=== PATIENT | male | born 1965 | race African-American/Black ===

== ENCOUNTER 2018-10-04 13:15 | Inpatient (IN) | payer OTHER ==
--- NOTE | 2018-10-04 18:28 | HP ---
CIWA Score Nausea/Vomitin-Mild Nausea/No Vomiting Muscle Tremors: 2 Anxiety: 3 Agitation: 3 Paroxysmal Sweats: 3 Orientation: 0-Oriented Tacttile Disturbances: 0-None Auditory Disturbances: 0-None Visual Disturbances: 0-None Headache: 2-Mild CIWA-Ar Total Score: 14 - Admission Criteria [facility]ASAS Guidelines: Admission for Medically Managed Detox: Requires at least one of the followin. CIWA greater than 12 2. Seizures within the past 24 hours 3. Delirium tremens within the past 24 hours 4. Hallucinations within the past 24 hours 5. Acute intervention needed for co occurring medical disorder 6. Acute intervention needed for co occurring psychiatric disorder 7. Severe withdrawal that cannot be handled at a lower level of care (continued vomiting, continued diarrhea, abnormal vital signs) requiring intravenous medication and/or fluids 8. Patient presents the following: CIWA greater than 12 Admission Criteria Met: Admission criteria met Admission ROS [facility] Chief Complaint: Experiencing alcohol withdrawal Allergies/Adverse Reactions: Allergies Allergy/AdvReac Type Severity Reaction Status Date / Time No Known Allergies Allergy Verified 10/04/18 14:17 History of Present Illness: Here for alcohol detox. Alcohol use since age 16. States current use x 10 years. Cocaine use since age 26. States current use x 10 years. Stopped smoking about 5 years ago. Longest length of sobriety 1 year over 10 years. Hx: Blackouts - last 1 month ago. Denies seizures or overdoses. PMHx: HTN (States not taking meds), (L) AKA, GERD, Low Back pain, Shoulder pain , MHHx: Insomnia. Denies depression. Denies thoughts of harming self or others. Patient Name: Dom Marrero Date: 1965 Address: [address] [place] [address] Sex: Male Rx Written Rx Dispensed Drug Quantity Days Supply Prescriber Name 10/22/2017 10/26/2017 chlordiazepoxide 10 mg capsule 4 2 Lucero Linn MD 10/07/2017 10/15/2017 chlordiazepoxide 10 mg capsule 4 2 Lucero Linn MD Search Terms: Dom Marrero, 1965 Search Date: 10/04/2018 06:24:41 PM States Searched: [place], [place], [place], [place], [place], [place], [place] The Drug Utilization Report below displays the controlled substance prescriptions, if any, that were dispensed in the indicated state(s). The information displayed on this report is compiled from requests submitted to other states' PMPs, and accurately reflects the information as returned by them. Blank saldana indicate data not provided by other state. This report was requested by: Zainab Carrillo | Reference #: [id number] Exam Limitations: No Limitations - Ebola screening Have you traveled outside of the country in the last 21 days: No (N) Have you had contact with anyone from an Ebola affected area: No Have you been sick,other than usual withdrawal symptoms: No (Denies recent exposure to measles) Do you have a fever: No - Review of Systems Constitutional: Diaphoresis, Changes in sleep (Difficulty falling asleep - no sleep meds prescribed) EENT: reports: Blurred Vision Respiratory: reports: No Symptoms reported Cardiac: reports: No Symptoms Reported GI: reports: Nausea, Indigestion (I have GERD/acid reflux) : reports: No Symptoms Reported Musculoskeletal: reports: Back Pain (Chronic sharp back pain - since 1998. pain now @ "7". Increases w/ twisting; Improves w/ laying straight), Joint Pain ( Both shoulder pain - Increases w/ moving arms. Improves w/ not moving.), Other ( AKA - in 1998. States has sharp pain intermittently.) Integumentary: reports: No Symptoms Reported Neuro: reports: Headache (Mild frontal and temportal headache), Tremors Endocrine: reports: Increased Thirst Hematology: reports: No Symptoms Reported Psychiatric: reports: Judgement Intact, Agitated, Anxious Patient History - PPD History Previous Implant?: Yes Documented Results: Negative w/o proof Implanted On Prior [facility] Admission?: No PPD to be Administered?: Yes - Smoking Cessation Smoking history: Former smoker Have you smoked in the past 12 months: No Hx Chewing Tobacco Use: No Initiated information on smoking cessation: No - Substance & Tx. History Hx Alcohol Use: Yes Hx Substance Use: Yes Substance Use Type: Alcohol, Cocaine Hx Substance Use Treatment: Yes (detox) - Substances abused Alcohol Substance route: Oral Frequency: Daily Amount used: 3-40oz Beer, Vodka-1PInt Age of first use: 16 Date of last use: 10/03/18 Cocaine Substance route: Inhalation Frequency: Daily Amount used: $30-$100 Age of first use: 26 Date of last use: 10/03/18 Admission Physical Exam [facility] - Vital Signs Vital Signs: Vital Signs - 24 hr 10/04/18 14:17 Temperature 97.9 F Pulse Rate 58 L Respiratory 18 Rate Blood Pressure 135/71 - Physical General Appearance: Yes: Nourished, Mild Distress, Tremorous, Sweating, Anxious HEENTM: Yes: EOMI, Hearing grossly Normal, Normocephalic, Normal Voice, KUSHAL, Pharynx Normal Respiratory: Yes: Lungs Clear, Normal Breath Sounds, No Respiratory Distress Neck: Yes: No masses,lesions,Nodules, Supple Breast: Yes: Breast Exam Deferred Cardiology: Yes: S1, S2, Bradycardia, Irregular Abdominal: Yes: Non Tender, Soft, Increased Bowel Sounds Genitourinary: Yes: Within Normal Limits Back: Yes: Normal Inspection Musculoskeletal: Yes: full range of Motion, Other ((L) AKA. 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 intact, Fully Oriented, Alert, Motor Strength 5/5 Integumentary: Yes: Normal Color, Warm Lymphatic: Yes: Within Normal Limits - Diagnostic (1) Alcohol dependence with uncomplicated withdrawal Current Visit: Yes Status: Acute (2) Cocaine dependence, uncomplicated Current Visit: Yes Status: Chronic (3) Above knee amputation of left lower extremity Current Visit: Yes Status: Chronic (4) Essential (primary) hypertension Current Visit: Yes Status: Chronic (5) Bradycardia Current Visit: Yes Status: Acute (6) Low back pain Current Visit: Yes Status: Chronic Qualifiers: Chronicity: chronic Back pain laterality: unspecified Sciatica presence: without sciatica Qualified Code(s): M54.5 - Low back pain; G89.29 - Other chronic pain (7) Shoulder pain Current Visit: Yes Status: Acute Qualifiers: Chronicity: chronic Laterality: bilateral Qualified Code(s): M25.511 - Pain in right shoulder; M25.512 - Pain in left shoulder; G89.29 - Other chronic pain Cleared for Admission [facility] - Detox or Rehab [facility] Level of Care: Medically Managed Detox Regimen/Protocol: Librium Claeared for Rehab Admission: No Breathalyzer - Breathalyzer Breathalyzer: 0 Urine Drug Screen - Test Device Lot number: [id number] Expiration date: 06/16/20 - Control Is test valid?: Yes - Results Drug screen NEGATIVE: No Urine drug screen results: RANDAL-Cocaine Inpatient Rehab Admission - Rehab Decision to Admit Inpatient rehab admission?: No
[2018-10-04] MEDS ORDERED: PROCHLORPERAZINE MALEATE 5 MG TABLET PO PRN (18:47)
[2018-10-04] MEDS ORDERED: MAGNESIUM CITRATE 300 ML BOTTLE PO PRN (18:47)
[2018-10-04] MEDS ORDERED: chlordiazePOXIDE HCL 10 MG CAPSULE PO PRN (18:47)
[2018-10-04] MEDS ORDERED: BISMUTH SUBSALICYLATE 524 MG/30 ML UD PO PRN (18:47)
[2018-10-04] MEDS ORDERED: ACETAMINOPHEN 325 MG TABLET (FP) PO PRN ×2 (18:47)
[2018-10-04] MEDS ORDERED: MENTHOL/PHENOL 1 EACH UD MM PRN (18:47)
[2018-10-04] MEDS ORDERED: MAGNESIUM HYDROX 2400MG/30ML ORAL SUSPENSION 30 ML CUP PO PRN (18:47)
[2018-10-04] MEDS: MELATONIN 5 MG TABLETS PO PRN (20:35)
[2018-10-04] MEDS: METHOCARBAMOL 500 MG TABLET PO PRN (20:35)
[2018-10-04] MEDS: chlordiazePOXIDE HCL 25 MG CAPSULE PO SCH (20:36)
[2018-10-04] MEDS: MAG HYDROX/AL HYDROX/SIMETH 30 ML UNIT-DOSE CUP PO PRN (20:38)
[2018-10-04] MEDS: THIAMINE HCL 100 MG TABLET (FP) PO SCH (21:53)
[2018-10-05 01:09] LABS: PH,URINE 5.5 (5.0-8.0); URINE APPEARANCE CLEAR; URINE BILIRUBIN NEGATIVE (NEGATIVE); URINE COLOR YELLOW; URINE GLUCOSE (UA) NEGATIVE (NEGATIVE); URINE KETONE NEGATIVE (NEGATIVE); URINE LEUK ESTERASE NEGATIVE (NEGATIVE); URINE NITRITE NEGATIVE (NEGATIVE); URINE PROTEIN NEGATIVE (NEGATIVE); URINE UROBILINOGEN 0.2 mg/dL (0.2-1.0)
[2018-10-05] MEDS: chlordiazePOXIDE HCL 25 MG CAPSULE PO SCH ×2 (05:58→13:57)
[2018-10-05] MEDS: MAG HYDROX/AL HYDROX/SIMETH 30 ML UNIT-DOSE CUP PO PRN (06:01)
[2018-10-05] MEDS: IBUPROFEN 600 MG TABLET (FP) PO PRN ×2 (06:01→17:19)
--- NOTE | 2018-10-05 10:15 | PN ---
S CIWA - CIWA Score Nausea/Vomitin-Mild Nausea/No Vomiting Muscle Tremors: 2 Anxiety: 3 Agitation: 3 Paroxysmal Sweats: 1-Minimal Palms Moist Orientation: 0-Oriented Tacttile Disturbances: 0-None Auditory Disturbances: 0-None Visual Disturbances: 0-None Headache: 1-Very Mild CIWA-Ar Total Score: 11 S Progress Note (SOAP) Subjective: ambulating with wheelchair on hallway social with peers in day room encourage to discuss aftercare with staff Objective: 10/05/18 10:14 Vital Signs Temperature 96.7 F L 10/05/18 09:13 Pulse Rate 65 10/05/18 09:13 Respiratory Rate 18 10/05/18 09:13 Blood Pressure 115/60 10/05/18 09:13 O2 Sat by Pulse Oximetry (%) Laboratory Last Values Urine Color Yellow 10/04/18 23:55 Urine Appearance Clear 10/04/18 23:55 Urine pH 5.5 (5.0-8.0) 10/04/18 23:55 Ur Specific [place] 1.029 (1.010-1.035) 10/04/18 23:55 Urine Protein Negative (NEGATIVE) 10/04/18 23:55 Urine Glucose (UA) Negative (NEGATIVE) 10/04/18 23:55 Urine Ketones Negative (NEGATIVE) 10/04/18 23:55 Urine Blood Negative (NEGATIVE) 10/04/18 23:55 Urine Nitrite Negative (NEGATIVE) 10/04/18 23:55 Urine Bilirubin Negative (NEGATIVE) 10/04/18 23:55 Urine Urobilinogen 0.2 mg/dL (0.2-1.0) 10/04/18 23:55 Ur Leukocyte Esterase Negative (NEGATIVE) 10/04/18 23:55 10/05/18 10:14 lab pending Assessment: 10/05/18 10:14 withdrawal sx Plan: continue detox
[2018-10-05] MEDS: PANTOPRAZOLE 40 MG TABLET (FP) PO SCH (10:25)
[2018-10-05] MEDS: PRENATAL VITAMINS W/ FOLIC ACID TABLET (FP) PO SCH (10:25)
[2018-10-05 10:26] LABS: HEMATOCRIT 36.6 % (35.4-49); HEMOGLOBIN 12.2 GM/dL (11.7-16.9); MCH 31.8 pg (25.7-33.7); MCHC 33.5 g/dl (32.0-35.9); MEAN PLT VOLUME 7.8 fl (7.5-11.1); PLATELET COUNT 279 K/MM3 (134-434); RBC 3.85 M/mm3 (4.00-5.60); RDW 14.9 % (11.9-15.9); WHITE BLOOD COUNT 5.9 K/mm3 (4.0-10.0)
[2018-10-05 10:43] LABS: ALBUMIN 3.2 g/dl (3.4-5.0); BILIRUBIN,TOTAL 0.5 mg/dL (0.2-1); CALCIUM 8.6 mg/dL (8.5-10.1); CREATININE 0.8 mg/dL (0.55-1.3); POTASSIUM 3.5 mmol/L (3.5-5.1); TOT PROT 5.9 g/dl (6.4-8.2)
--- NOTE | 2018-10-05 12:52 | EKG ---
Test Reason : Blood Pressure : / mmHG Vent. Rate : 044 BPM Atrial Rate : 044 BPM P-R Int : 148 ms QRS Dur : 090 ms QT Int : 468 ms P-R-T Axes : 050 050 058 degrees QTc Int : 400 ms MARKED SINUS BRADYCARDIA ABNORMAL ECG NO PREVIOUS ECGS AVAILABLE Confirmed by KATHY CALDERON, BK ([id number]) on 10/05/2018 12:51:54 PM Referred By: Confirmed By:BK CHAVEZ MD
[2018-10-05] MEDS: THIAMINE HCL 100 MG TABLET (FP) PO SCH (21:44)
[2018-10-05] MEDS: chlordiazePOXIDE 5 MG CAPSULE PO SCH (21:44)
[2018-10-05] MEDS: MELATONIN 5 MG TABLETS PO PRN (21:46)
[2018-10-05] MEDS: METHOCARBAMOL 500 MG TABLET PO PRN (21:46)
[2018-10-06] MEDS: chlordiazePOXIDE 5 MG CAPSULE PO SCH ×2 (05:40→13:17)
[2018-10-06] MEDS: IBUPROFEN 600 MG TABLET (FP) PO PRN ×3 (05:41→22:26)
[2018-10-06] MEDS: PANTOPRAZOLE 40 MG TABLET (FP) PO SCH (10:26)
[2018-10-06] MEDS: PRENATAL VITAMINS W/ FOLIC ACID TABLET (FP) PO SCH (10:26)
--- NOTE | 2018-10-06 14:27 | PN ---
S CIWA - CIWA Score Nausea/Vomitin-Mild Nausea/No Vomiting Muscle Tremors: 2 Anxiety: 2 Agitation: 2 Paroxysmal Sweats: No Perspiration Orientation: 0-Oriented Tacttile Disturbances: 0-None Auditory Disturbances: 0-None Visual Disturbances: 0-None Headache: 0-None Present CIWA-Ar Total Score: 7 BHS Progress Note (SOAP) Subjective: mild tremor otherwise doing ok with librium protocol Objective: 10/06/18 14:28 Vital Signs Temperature 97.2 F L 10/06/18 13:16 Pulse Rate 84 10/06/18 13:16 Respiratory Rate 18 10/06/18 13:16 Blood Pressure 108/73 10/06/18 13:16 O2 Sat by Pulse Oximetry (%) Laboratory Last Values WBC 5.9 K/mm3 (4.0-10.0) 10/05/18 07:00 RBC 3.85 M/mm3 (4.00-5.60) L 10/05/18 07:00 Hgb 12.2 GM/dL (11.7-16.9) 10/05/18 07:00 Hct 36.6 % (35.4-49) 10/05/18 07:00 MCV 95.0 fl (80-96) 10/05/18 07:00 MCH 31.8 pg (25.7-33.7) 10/05/18 07:00 MCHC 33.5 g/dl (32.0-35.9) 10/05/18 07:00 RDW 14.9 % (11.9-15.9) 10/05/18 07:00 Plt Count 279 K/MM3 (134-434) 10/05/18 07:00 MPV 7.8 fl (7.5-11.1) 10/05/18 07:00 Sodium 143 mmol/L (136-145) 10/05/18 07:00 Potassium 3.5 mmol/L (3.5-5.1) 10/05/18 07:00 Chloride 111 mmol/L (98-107) H 10/05/18 07:00 Carbon Dioxide 27 mmol/L (21-32) 10/05/18 07:00 Anion Gap 6 MMOL/L (8-16) L 10/05/18 07:00 BUN 17 mg/dL (7-18) 10/05/18 07:00 Creatinine 0.8 mg/dL (0.55-1.3) 10/05/18 07:00 Est GFR (CKD-EPI)AfAm 117.38 10/05/18 07:00 Est GFR (CKD-EPI)NonAf 101.27 10/05/18 07:00 Random Glucose 114 mg/dL (74-106) H 10/05/18 07:00 Calcium 8.6 mg/dL (8.5-10.1) 10/05/18 07:00 Total Bilirubin 0.5 mg/dL (0.2-1) 10/05/18 07:00 AST 23 U/L (15-37) 10/05/18 07:00 ALT 30 U/L (13-61) 10/05/18 07:00 Alkaline Phosphatase 53 U/L (45-117) 10/05/18 07:00 Total Protein 5.9 g/dl (6.4-8.2) L 10/05/18 07:00 Albumin 3.2 g/dl (3.4-5.0) L 10/05/18 07:00 Urine Color Yellow 10/04/18 23:55 Urine Appearance Clear 10/04/18 23:55 Urine pH 5.5 (5.0-8.0) 10/04/18 23:55 Ur Specific [place] 1.029 (1.010-1.035) 10/04/18 23:55 Urine Protein Negative (NEGATIVE) 10/04/18 23:55 Urine Glucose (UA) Negative (NEGATIVE) 10/04/18 23:55 Urine Ketones Negative (NEGATIVE) 10/04/18 23:55 Urine Blood Negative (NEGATIVE) 10/04/18 23:55 Urine Nitrite Negative (NEGATIVE) 10/04/18 23:55 Urine Bilirubin Negative (NEGATIVE) 10/04/18 23:55 Urine Urobilinogen 0.2 mg/dL (0.2-1.0) 10/04/18 23:55 Ur Leukocyte Esterase Negative (NEGATIVE) 10/04/18 23:55 RPR Titer Nonreactive (NONREACTIVE) 10/05/18 07:00 HIV 1&2 Antibody Screen Negative 10/05/18 07:00 HIV P24 Antigen Negative 10/05/18 07:00 lab noted Assessment: 10/06/18 14:28 withdrawal sx Plan: continue detox
[2018-10-06] MEDS: MAG HYDROX/AL HYDROX/SIMETH 30 ML UNIT-DOSE CUP PO PRN (15:18)
[2018-10-06] MEDS ORDERED: chlordiazePOXIDE HCL 10 MG CAPSULE PO PRN (21:00)
[2018-10-06] MEDS: MELATONIN 5 MG TABLETS PO PRN (22:22)
[2018-10-06] MEDS: chlordiazePOXIDE HCL 10 MG CAPSULE PO SCH (22:22)
[2018-10-06] MEDS: METHOCARBAMOL 500 MG TABLET PO PRN (22:26)
[2018-10-06] MEDS: THIAMINE HCL 100 MG TABLET (FP) PO SCH (22:26)
[2018-10-07] MEDS: chlordiazePOXIDE HCL 10 MG CAPSULE PO SCH (05:26)
[2018-10-07] MEDS: IBUPROFEN 600 MG TABLET (FP) PO PRN (05:28)
[2018-10-07 06:30] VITALS: PULSE 58
[2018-10-07 09:09] VITALS: BP 121/73; TEMP 96.9
[2018-10-07] MEDS: PRENATAL VITAMINS W/ FOLIC ACID TABLET (FP) PO SCH (10:26)
[2018-10-07] MEDS: PANTOPRAZOLE 40 MG TABLET (FP) PO SCH (10:26)
--- NOTE | 2018-10-07 19:42 | PN ---
S CIWA - CIWA Score Nausea/Vomitin-No Nausea/No Vomiting Muscle Tremors: None Anxiety: 0-No Anxiety, at Ease Agitation: 1-Slight > Activity Paroxysmal Sweats: No Perspiration Orientation: 0-Oriented Tacttile Disturbances: 0-None Auditory Disturbances: 0-None Visual Disturbances: 0-None Headache: 0-None Present CIWA-Ar Total Score: 1 BHS Progress Note (SOAP) Subjective: Patient denies current Withdrawal / Detox symptoms and reports that he feels well overall at this time. Objective: PATIENT A & O X 3, OBSERVED MOVING ABOUT DETOX UNIT IN A WHEELCHAIR. IN NO ACUTE DISTRESS. 10/07/18 19:42 Vital Signs Temperature 96.9 F L 10/07/18 09:08 Pulse Rate 58 L 10/07/18 09:08 Respiratory Rate 18 10/07/18 09:08 Blood Pressure 121/73 10/07/18 09:08 O2 Sat by Pulse Oximetry (%) Laboratory Tests 10/04/18 10/05/18 10/05/18 23:55 07:00 07:00 WBC 5.9 RBC 3.85 L Hgb 12.2 Hct 36.6 MCV 95.0 MCH 31.8 MCHC 33.5 RDW 14.9 Plt Count 279 MPV 7.8 Sodium 143 Potassium 3.5 Chloride 111 H Carbon Dioxide 27 Anion Gap 6 L BUN 17 Creatinine 0.8 Est GFR (CKD-EPI)AfAm 117.38 Est GFR (CKD-EPI)NonAf 101.27 Random Glucose 114 H Calcium 8.6 Total Bilirubin 0.5 AST 23 ALT 30 Alkaline Phosphatase 53 Total Protein 5.9 L Albumin 3.2 L Urine Color Yellow Urine Appearance Clear Urine pH 5.5 Ur Specific [employer] 1.029 Urine Protein Negative Urine Glucose (UA) Negative Urine Ketones Negative Urine Blood Negative Urine Nitrite Negative Urine Bilirubin Negative Urine Urobilinogen 0.2 Ur Leukocyte Esterase Negative RPR Titer HIV 1&2 Antibody Screen HIV P24 Antigen 10/05/18 10/05/18 07:00 07:00 WBC RBC Hgb Hct MCV MCH MCHC RDW Plt Count MPV Sodium Potassium Chloride Carbon Dioxide Anion Gap BUN Creatinine Est GFR (CKD-EPI)AfAm Est GFR (CKD-EPI)NonAf Random Glucose Calcium Total Bilirubin AST ALT Alkaline Phosphatase Total Protein Albumin Urine Color Urine Appearance Urine pH Ur Specific [employer] Urine Protein Urine Glucose (UA) Urine Ketones Urine Blood Urine Nitrite Urine Bilirubin Urine Urobilinogen Ur Leukocyte Esterase RPR Titer Nonreactive HIV 1&2 Antibody Screen Negative HIV P24 Antigen Negative LABS NOTED. Assessment: 10/07/18 19:43 COMPLETION OF DETOX REGIMEN. Plan: SINCE PATIENT DENIES CURRENT WITHDRAWAL / DETOX SYMPTOMS AND REPORTS THAT HE FEELS WELL OVERALL, AT PATIENTS REQUEST, HE WAS DISCHARGED FROM DETOX UNIT TODAY.
--- NOTE | 2018-10-07 19:50 | DS ---
[facility] Detox Discharge Summary Admission Date: 10/04/18 Discharge Date: 10/07/18 - History Present History: Alcohol Dependence, Cocaine Dependence Additional Comments: PATIENT DENIES CURRENT WITHDRAWAL / DETOX SYMPTOMS AND REPORTS THAT HE FEELS WELL OVERALL AT TIME OF DISCHARGE FROM DETOX UNIT. PATIENT GOING TO [facility] ([place], [place]) FOR AFTERCARE. TRANSPORTATION ARRANGED TO BRING PATIENT BACK TO HIS HOME. PATIENT WAS DISCHARGED FROM DETOX UNIT IN STABLE MEDICAL CONDITION. Pertinent Past History: HTN, History Of Left AKA, G.E.R.D., History Of Lower Back Pain, History Of Bilateral Shoulder Pain, History Of Bradycardia, Insomnia. - Physical Exam Results Vital Signs: Vital Signs Temperature 96.9 F L 10/07/18 09:08 Pulse Rate 58 L 10/07/18 09:08 Respiratory Rate 18 10/07/18 09:08 Blood Pressure 121/73 10/07/18 09:08 O2 Sat by Pulse Oximetry (%) Pertinent Admission Physical Exam Findings: WITHDRAWAL SYMPTOMS. Laboratory Tests 10/04/18 10/05/18 10/05/18 23:55 07:00 07:00 WBC 5.9 RBC 3.85 L Hgb 12.2 Hct 36.6 MCV 95.0 MCH 31.8 MCHC 33.5 RDW 14.9 Plt Count 279 MPV 7.8 Sodium 143 Potassium 3.5 Chloride 111 H Carbon Dioxide 27 Anion Gap 6 L BUN 17 Creatinine 0.8 Est GFR (CKD-EPI)AfAm 117.38 Est GFR (CKD-EPI)NonAf 101.27 Random Glucose 114 H Calcium 8.6 Total Bilirubin 0.5 AST 23 ALT 30 Alkaline Phosphatase 53 Total Protein 5.9 L Albumin 3.2 L Urine Color Yellow Urine Appearance Clear Urine pH 5.5 Ur Specific [place] 1.029 Urine Protein Negative Urine Glucose (UA) Negative Urine Ketones Negative Urine Blood Negative Urine Nitrite Negative Urine Bilirubin Negative Urine Urobilinogen 0.2 Ur Leukocyte Esterase Negative RPR Titer HIV 1&2 Antibody Screen HIV P24 Antigen 10/05/18 10/05/18 07:00 07:00 WBC RBC Hgb Hct MCV MCH MCHC RDW Plt Count MPV Sodium Potassium Chloride Carbon Dioxide Anion Gap BUN Creatinine Est GFR (CKD-EPI)AfAm Est GFR (CKD-EPI)NonAf Random Glucose Calcium Total Bilirubin AST ALT Alkaline Phosphatase Total Protein Albumin Urine Color Urine Appearance Urine pH Ur Specific [place] Urine Protein Urine Glucose (UA) Urine Ketones Urine Blood Urine Nitrite Urine Bilirubin Urine Urobilinogen Ur Leukocyte Esterase RPR Titer Nonreactive HIV 1&2 Antibody Screen Negative HIV P24 Antigen Negative LABS NOTED. - Treatment Hospital Course: Detox Protocol Followed, Detoxed Safely, Responded well, Discharged Condition Good Patient has Accepted a Rehab Referral to: PT. REFERRED TO THE [facility] ([place], [place]). - Medication Discharge Medications: Ambulatory Orders Esomeprazole Magnesium [Nexium 24Hr] 40 mg PO DAILY 10/04/18 - Diagnosis (1) Alcohol dependence with uncomplicated withdrawal Status: Acute (2) Bradycardia Status: Acute (3) Shoulder pain Status: Acute Qualifiers: Chronicity: chronic Laterality: bilateral Qualified Code(s): M25.511 - Pain in right shoulder; M25.512 - Pain in left shoulder; G89.29 - Other chronic pain (4) Above knee amputation of left lower extremity Status: Chronic (5) Cocaine dependence, uncomplicated Status: Chronic (6) Essential (primary) hypertension Status: Chronic (7) Low back pain Status: Chronic Qualifiers: Chronicity: chronic Back pain laterality: unspecified Sciatica presence: without sciatica Qualified Code(s): M54.5 - Low back pain; G89.29 - Other chronic pain - AMA Did Patient Leave Against Medical Advice: No
[2018-10-08] MEDS ORDERED: chlordiazePOXIDE HCL 10 MG CAPSULE PO SCH (06:00)
== END 2018-10-07 12:12 | disposition home or self-care (01) | DRG 774 ==
LOC: YASAS 13:15 → Y3N 16:13
PROVIDERS: ADMIT Surgery; ATTEND Surgery
PROC: HZ2ZZZZ Detoxification Services for Substance Abuse Treatment (ICD-10-PCS; principal; 2018-10-04)
DX: F10.230 Alcohol dependence with withdrawal, uncomplicated (principal); F14.20 Cocaine dependence, uncomplicated; I10 Essential (primary) hypertension; G47.00 Insomnia, unspecified; M54.5 Low back pain; G89.29 Other chronic pain; M25.511 Pain in right shoulder; M25.512 Pain in left shoulder; R00.1 Bradycardia, unspecified; Z89.612 Acquired absence of left leg above knee; Z99.3 Dependence on wheelchair; Z59.0 Homelessness
CPT/HCPCS: 36415; 80053; 81003; 85027; 86593; 87389; 93005; 93010

== ENCOUNTER 2020-02-01 10:51 | Inpatient (IN) | payer OTHER ==
--- NOTE | 2020-02-01 11:27 | BHS.RME ---
Substance Use & Tx History - Substance Use History Alcohol Substance amount: 1-2 pints vodka + 6 40 oz beers Frequency of use: Daily Substance route: Oral Date of Last Use: 02/01/20 Cocaine-Crack Substance amount: $200-300 Frequency of use: Daily Substance route: Smoking Date of Last Use: 02/01/20 Nicotine Substance amount: 1 pack Frequency of use: Daily Substance route: Smoking Date of Last Use: 02/01/20 Physical/Psych/Mental Status - Behavior General Behavior: Increased activity (restlessness, agitation) Eye Contact: Normal - Cooperativeness Cooperativeness: Cooperative - Thinking Thought Processes: Tight, Logical, Goal Directed Thought content: Future oriented - Physical Health Problems Is patient presently having any pain?: No Does patient presently have any injuries (include location): No Does patient currently have a fever: No Is patient : No CIWA Nausea/Vomitin-Mild Nausea/No Vomiting Muscle Tremors: 3 Anxiety: 4-Mod. Anxious/Guarded Agitation: 3 Paroxysmal Sweats: 3 Orientation: 1-Uncertain about Date Tacttile Disturbances: 1-Very Mild Itch/Numbness Auditory Disturbances: 0-None Visual Disturbances: 0-None Headache: 6-Very Severe CIWA-Ar Total Score: 22
[2020-02-01 12:00] VITALS: BMI 22.2
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
[2020-02-01] MEDS ORDERED: ONDANSETRON *ODT* 4 MG TABLET SL PRN (12:27)
[2020-02-01] MEDS ORDERED: ACETAMINOPHEN 325 MG TABLET (FP) PO PRN (12:27)
[2020-02-01] MEDS ORDERED: NICOTINE POLACRILEX 2 MG GUM BUC PRN (12:27)
[2020-02-01] MEDS ORDERED: MAGNESIUM CITRATE 300 ML BOTTLE PO PRN (12:27)
[2020-02-01] MEDS ORDERED: chlordiazePOXIDE HCL 25 MG CAPSULE PO PRN (12:27)
[2020-02-01] MEDS ORDERED: BISMUTH SUBSALICYLATE 262 MG/15 ML BTL PO PRN (12:27)
[2020-02-01] MEDS ORDERED: MENTHOL/PHENOL 1 EACH UD MM PRN (12:27)
[2020-02-01] MEDS ORDERED: METHOCARBAMOL 500 MG TABLET PO PRN (12:27)
[2020-02-01] MEDS ORDERED: MAGNESIUM HYDROX 2400MG/30ML ORAL SUSPENSION 30 ML CUP PO PRN (12:27)
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
[2020-02-01] MEDS: hydrOXYzine PAMOATE 25 MG CAPSULE (FP) PO SCH ×3 (13:31→23:14)
[2020-02-01] MEDS: ACETAMINOPHEN 325 MG TABLET (FP) PO PRN (13:31)
--- NOTE | 2020-02-01 16:31 | EKG ---
Test Reason : Blood Pressure : / mmHG Vent. Rate : 066 BPM Atrial Rate : 066 BPM P-R Int : 140 ms QRS Dur : 082 ms QT Int : 414 ms P-R-T Axes : 069 058 066 degrees QTc Int : 434 ms NORMAL SINUS RHYTHM NORMAL ECG WHEN COMPARED WITH ECG OF 04-OCT-2018 19:49, VENT. RATE HAS INCREASED BY 22 BPM Confirmed by LEONCIO LIN MD ([id number]) on 02/01/2020 4:31:15 PM Referred By: Confirmed By:LEONCIO LIN MD
[2020-02-01 17:13] LABS: HEMATOCRIT 43.9 % (35.4-49); HEMOGLOBIN 14.8 GM/dL (11.7-16.9); MCH 32.4 pg (25.7-33.7); MCHC 33.6 g/dl (32.0-35.9); MEAN CELL VOLUME 96.4 fl (80-96); MEAN PLT VOLUME 7.7 fl (7.5-11.1); PLATELET COUNT 310 K/MM3 (134-434); RBC 4.56 M/mm3 (4.00-5.60); RDW 14.8 % (11.9-15.9); WHITE BLOOD COUNT 5.9 K/mm3 (4.0-10.0)
[2020-02-01 17:29] LABS: ALBUMIN 3.8 g/dl (3.4-5.0); BILIRUBIN,TOTAL 0.4 mg/dL (0.2-1); BLOOD UREA NITROGEN 13.2 mg/dL (7-18); CALCIUM 8.9 mg/dL (8.5-10.1); CREATININE 0.9 mg/dL (0.55-1.3); POTASSIUM 3.7 mmol/L (3.5-5.1); TOT PROT 7.4 g/dl (6.4-8.2)
[2020-02-01] MEDS: chlordiazePOXIDE HCL 25 MG CAPSULE PO SCH ×2 (18:01→23:10)
[2020-02-01] MEDS: THIAMINE HCL 100 MG TABLET (FP) PO SCH (23:09)
[2020-02-01] MEDS: IBUPROFEN 400 MG TABLET (FP) PO PRN (23:11)
[2020-02-01] MEDS: MELATONIN 5 MG TABLETS PO SCH (23:14)
[2020-02-02] MEDS: chlordiazePOXIDE HCL 25 MG CAPSULE PO SCH ×4 (06:20→22:26)
[2020-02-02] MEDS: ACETAMINOPHEN 325 MG TABLET (FP) PO PRN ×2 (06:21→22:28)
[2020-02-02] MEDS: hydrOXYzine PAMOATE 25 MG CAPSULE (FP) PO SCH ×2 (06:27→10:54)
--- NOTE | 2020-02-02 10:17 | PN ---
[facility] CIWA - CIWA Score Nausea/Vomitin-Mild Nausea/No Vomiting Muscle Tremors: 2 Anxiety: 2 Agitation: 2 Paroxysmal Sweats: No Perspiration Orientation: 0-Oriented Tacttile Disturbances: 1-Very Mild Itch/Numbness Auditory Disturbances: 0-None Visual Disturbances: 0-None Headache: 2-Mild CIWA-Ar Total Score: 10 S Progress Note (SOAP) Subjective: alert,irritable,anxious,interrupted sleep,tremor,aching pain Objective: 02/02/20 16:25 Vital Signs Temperature 97.2 F L 02/02/20 13:13 Pulse Rate 72 02/02/20 13:13 Respiratory Rate 18 02/02/20 13:13 Blood Pressure 115/68 02/02/20 13:13 O2 Sat by Pulse Oximetry (%) 98 02/02/20 13:13 Laboratory Last Values WBC 5.9 K/mm3 (4.0-10.0) 02/01/20 12:35 RBC 4.56 M/mm3 (4.00-5.60) 02/01/20 12:35 Hgb 14.8 GM/dL (11.7-16.9) 02/01/20 12:35 Hct 43.9 % (35.4-49) D 02/01/20 12:35 MCV 96.4 fl (80-96) H 02/01/20 12:35 MCH 32.4 pg (25.7-33.7) 02/01/20 12:35 MCHC 33.6 g/dl (32.0-35.9) 02/01/20 12:35 RDW 14.8 % (11.9-15.9) 02/01/20 12:35 Plt Count 310 K/MM3 (134-434) 02/01/20 12:35 MPV 7.7 fl (7.5-11.1) 02/01/20 12:35 Sodium 140 mmol/L (136-145) 02/01/20 12:35 Potassium 3.7 mmol/L (3.5-5.1) 02/01/20 12:35 Chloride 103 mmol/L (98-107) 02/01/20 12:35 Carbon Dioxide 27 mmol/L (21-32) 02/01/20 12:35 Anion Gap 11 MMOL/L (8-16) 02/01/20 12:35 BUN 13.2 mg/dL (7-18) 02/01/20 12:35 Creatinine 0.9 mg/dL (0.55-1.3) 02/01/20 12:35 Est GFR (CKD-EPI)AfAm 111.05 02/01/20 12:35 Est GFR (CKD-EPI)NonAf 95.81 02/01/20 12:35 Random Glucose 149 mg/dL (74-106) H 02/01/20 12:35 Calcium 8.9 mg/dL (8.5-10.1) 02/01/20 12:35 Total Bilirubin 0.4 mg/dL (0.2-1) 02/01/20 12:35 AST 32 U/L (15-37) 02/01/20 12:35 ALT 34 U/L (13-61) 02/01/20 12:35 Alkaline Phosphatase 64 U/L (45-117) 02/01/20 12:35 Total Protein 7.4 g/dl (6.4-8.2) 02/01/20 12:35 Albumin 3.8 g/dl (3.4-5.0) 02/01/20 12:35 Syphilis Serology Non-reactive (NONREACTIVE) 02/01/20 12:35 COVID-19 (SHANIQUE) Not detected (Not Detected) 02/01/20 12:35 Assessment: 02/02/20 16:26 withdrawal symptom Plan: continue detox librium regimen,initial glucose is 149,will do fasting glucose in am
[2020-02-02] MEDS: amLODIPine BESYLATE 10 MG TABLET (FP) PO SCH (10:54)
[2020-02-02] MEDS: NICOTINE 7 MG/24 HOURS TOPICAL PATCH TD SCH (10:54)
[2020-02-02] MEDS: PRENATAL VITAMINS W/ FOLIC ACID TABLET (FP) PO SCH (10:54)
[2020-02-02] MEDS: IBUPROFEN 400 MG TABLET (FP) PO PRN (10:58)
[2020-02-02] MEDS ORDERED: hydrOXYzine PAMOATE 25 MG CAPSULE (FP) PO PRN (11:14)
[2020-02-02] MEDS: THIAMINE HCL 100 MG TABLET (FP) PO SCH (22:26)
[2020-02-02] MEDS: MELATONIN 5 MG TABLETS PO SCH (22:32)
[2020-02-03] MEDS: chlordiazePOXIDE HCL 25 MG CAPSULE PO SCH ×4 (05:33→22:08)
[2020-02-03] MEDS: PRENATAL VITAMINS W/ FOLIC ACID TABLET (FP) PO SCH (10:59)
[2020-02-03] MEDS: amLODIPine BESYLATE 10 MG TABLET (FP) PO SCH (10:59)
[2020-02-03] MEDS: NICOTINE 7 MG/24 HOURS TOPICAL PATCH TD SCH (10:59)
[2020-02-03] MEDS: ACETAMINOPHEN 325 MG TABLET (FP) PO PRN (11:01)
[2020-02-03] MEDS: MAG HYDROX/AL HYDROX/SIMETH 30 ML UNIT-DOSE CUP PO PRN ×2 (11:03→17:20)
[2020-02-03] MEDS ORDERED: PANTOPRAZOLE 40 MG TABLET PO ONE (13:07)
--- NOTE | 2020-02-03 13:15 | PN ---
[facility] CIWA - CIWA Score Nausea/Vomitin-No Nausea/No Vomiting Muscle Tremors: 2 Anxiety: 3 Agitation: 2 Paroxysmal Sweats: 2 Orientation: 0-Oriented Tacttile Disturbances: 0-None Auditory Disturbances: 0-None Visual Disturbances: 0-None Headache: 0-None Present CIWA-Ar Total Score: 9 S Progress Note (SOAP) Subjective: Complaints of heartburn, tremors, anxiety, and sweats. Objective: 02/03/20 13:13 Vital Signs 02/03/20 02/03/20 02/03/20 05:18 09:35 12:30 Temperature 97.1 F L 97.3 F L 98.3 F Pulse Rate 86 53 L 54 L Respiratory 20 17 18 Rate Blood Pressure 130/99 128/83 109/65 O2 Sat by Pulse 99 99 99 Oximetry (%) Laboratory Last Values WBC 5.9 K/mm3 (4.0-10.0) 02/01/20 12:35 RBC 4.56 M/mm3 (4.00-5.60) 02/01/20 12:35 Hgb 14.8 GM/dL (11.7-16.9) 02/01/20 12:35 Hct 43.9 % (35.4-49) D 02/01/20 12:35 MCV 96.4 fl (80-96) H 02/01/20 12:35 MCH 32.4 pg (25.7-33.7) 02/01/20 12:35 MCHC 33.6 g/dl (32.0-35.9) 02/01/20 12:35 RDW 14.8 % (11.9-15.9) 02/01/20 12:35 Plt Count 310 K/MM3 (134-434) 02/01/20 12:35 MPV 7.7 fl (7.5-11.1) 02/01/20 12:35 Sodium 140 mmol/L (136-145) 02/01/20 12:35 Potassium 3.7 mmol/L (3.5-5.1) 02/01/20 12:35 Chloride 103 mmol/L (98-107) 02/01/20 12:35 Carbon Dioxide 27 mmol/L (21-32) 02/01/20 12:35 Anion Gap 11 MMOL/L (8-16) 02/01/20 12:35 BUN 13.2 mg/dL (7-18) 02/01/20 12:35 Creatinine 0.9 mg/dL (0.55-1.3) 02/01/20 12:35 Est GFR (CKD-EPI)AfAm 111.05 02/01/20 12:35 Est GFR (CKD-EPI)NonAf 95.81 02/01/20 12:35 Random Glucose 149 mg/dL (74-106) H 02/01/20 12:35 Fasting Glucose 89 mg/dL (74-106) 02/03/20 07:45 Calcium 8.9 mg/dL (8.5-10.1) 02/01/20 12:35 Total Bilirubin 0.4 mg/dL (0.2-1) 02/01/20 12:35 AST 32 U/L (15-37) 02/01/20 12:35 ALT 34 U/L (13-61) 02/01/20 12:35 Alkaline Phosphatase 64 U/L (45-117) 02/01/20 12:35 Total Protein 7.4 g/dl (6.4-8.2) 02/01/20 12:35 Albumin 3.8 g/dl (3.4-5.0) 02/01/20 12:35 Syphilis Serology Non-reactive (NONREACTIVE) 02/01/20 12:35 COVID-19 (SHANIQUE) Not detected (Not Detected) 02/01/20 12:35 Labs noted. Assessment: 02/03/20 13:13 Alert and oriented x 3, in no acute respiratory distress. Full ROM, ambulating in unit without assistance. Skin warm to touch without any lesions. Withdrawal symptoms. Plan: Continue detox protocol. Protonix added for complaints heartburn (history of GERD)
[2020-02-03] MEDS: THIAMINE HCL 100 MG TABLET (FP) PO SCH (22:08)
[2020-02-03] MEDS: MELATONIN 5 MG TABLETS PO SCH (22:09)
[2020-02-04] MEDS ORDERED: chlordiazePOXIDE HCL 10 MG CAPSULE PO PRN
[2020-02-04] MEDS: chlordiazePOXIDE HCL 10 MG CAPSULE PO SCH ×4 (06:45→22:19)
[2020-02-04] MEDS: ACETAMINOPHEN 325 MG TABLET (FP) PO PRN (06:46)
[2020-02-04] MEDS: PANTOPRAZOLE 40 MG TABLET PO SCH (10:07)
[2020-02-04] MEDS: NICOTINE 7 MG/24 HOURS TOPICAL PATCH TD SCH (10:07)
[2020-02-04] MEDS: amLODIPine BESYLATE 10 MG TABLET (FP) PO SCH (10:07)
[2020-02-04] MEDS: PRENATAL VITAMINS W/ FOLIC ACID TABLET (FP) PO SCH (10:07)
--- NOTE | 2020-02-04 14:37 | PN ---
S CIWA - CIWA Score Nausea/Vomitin-No Nausea/No Vomiting Muscle Tremors: 2 Anxiety: 1-Mildly Anxious Agitation: 2 Paroxysmal Sweats: 2 Orientation: 0-Oriented Tacttile Disturbances: 0-None Auditory Disturbances: 0-None Visual Disturbances: 0-None Headache: 0-None Present CIWA-Ar Total Score: 7 BHS Progress Note (SOAP) Subjective: Feels ok, meds working Objective: 02/04/20 14:35 Last Vital Signs Temp Pulse Resp BP Pulse Ox 97.6 F 58 L 18 123/73 100 02/04/20 12:40 02/04/20 12:40 02/04/20 12:40 02/04/20 12:40 02/04/20 12:40 Laboratory Tests 02/01/20 02/01/20 02/01/20 12:35 12:35 12:35 WBC 5.9 RBC 4.56 Hgb 14.8 Hct 43.9 D MCV 96.4 H MCH 32.4 MCHC 33.6 RDW 14.8 Plt Count 310 MPV 7.7 Sodium Potassium Chloride Carbon Dioxide Anion Gap BUN Creatinine Est GFR (CKD-EPI)AfAm Est GFR (CKD-EPI)NonAf Random Glucose Fasting Glucose Calcium Total Bilirubin AST ALT Alkaline Phosphatase Total Protein Albumin Syphilis Serology Non-reactive COVID-19 (SHANIQUE) Not detected 02/01/20 02/03/20 12:35 07:45 WBC RBC Hgb Hct MCV MCH MCHC RDW Plt Count MPV Sodium 140 Potassium 3.7 Chloride 103 Carbon Dioxide 27 Anion Gap 11 BUN 13.2 Creatinine 0.9 Est GFR (CKD-EPI)AfAm 111.05 Est GFR (CKD-EPI)NonAf 95.81 Random Glucose 149 H Fasting Glucose 89 Calcium 8.9 Total Bilirubin 0.4 AST 32 ALT 34 Alkaline Phosphatase 64 Total Protein 7.4 Albumin 3.8 Syphilis Serology COVID-19 (SHANIQUE) Labs reviewed Assessment: 02/04/20 14:36 Withdrawal sxs Plan: Continue detox Encourage PO water intake
[2020-02-04] MEDS: IBUPROFEN 400 MG TABLET (FP) PO PRN (18:01)
[2020-02-04] MEDS: MAG HYDROX/AL HYDROX/SIMETH 30 ML UNIT-DOSE CUP PO PRN (18:03)
[2020-02-04] MEDS: THIAMINE HCL 100 MG TABLET (FP) PO SCH (22:19)
[2020-02-04] MEDS: MELATONIN 5 MG TABLETS PO SCH (22:19)
[2020-02-05] MEDS: ACETAMINOPHEN 325 MG TABLET (FP) PO PRN ×2 (05:25→22:17)
[2020-02-05] MEDS: chlordiazePOXIDE HCL 10 MG CAPSULE PO SCH ×2 (05:25→18:26)
--- NOTE | 2020-02-05 09:56 | PN ---
[facility] CIWA - CIWA Score Nausea/Vomitin-Mild Nausea/No Vomiting Muscle Tremors: 1-None Visible, but [place] Anxiety: 1-Mildly Anxious Agitation: 1-Slight > Activity Paroxysmal Sweats: No Perspiration Orientation: 0-Oriented Tacttile Disturbances: 0-None Auditory Disturbances: 0-None Visual Disturbances: 0-None Headache: 1-Very Mild CIWA-Ar Total Score: 5 S Progress Note (SOAP) Subjective: alert,irritable,anxious,aching pain in the body,pain in the gum and infected dental cavity,interrupted sleep Objective: 02/05/20 12:36 Vital Signs Temperature 97.3 F L 02/05/20 08:45 Pulse Rate 55 L 02/05/20 08:45 Respiratory Rate 17 02/05/20 08:45 Blood Pressure 113/83 02/05/20 08:45 O2 Sat by Pulse Oximetry (%) 99 02/05/20 08:45 02/05/20 12:36 Laboratory Last Values WBC 5.9 K/mm3 (4.0-10.0) 02/01/20 12:35 RBC 4.56 M/mm3 (4.00-5.60) 02/01/20 12:35 Hgb 14.8 GM/dL (11.7-16.9) 02/01/20 12:35 Hct 43.9 % (35.4-49) D 02/01/20 12:35 MCV 96.4 fl (80-96) H 02/01/20 12:35 MCH 32.4 pg (25.7-33.7) 02/01/20 12:35 MCHC 33.6 g/dl (32.0-35.9) 02/01/20 12:35 RDW 14.8 % (11.9-15.9) 02/01/20 12:35 Plt Count 310 K/MM3 (134-434) 02/01/20 12:35 MPV 7.7 fl (7.5-11.1) 02/01/20 12:35 Sodium 140 mmol/L (136-145) 02/01/20 12:35 Potassium 3.7 mmol/L (3.5-5.1) 02/01/20 12:35 Chloride 103 mmol/L (98-107) 02/01/20 12:35 Carbon Dioxide 27 mmol/L (21-32) 02/01/20 12:35 Anion Gap 11 MMOL/L (8-16) 02/01/20 12:35 BUN 13.2 mg/dL (7-18) 02/01/20 12:35 Creatinine 0.9 mg/dL (0.55-1.3) 02/01/20 12:35 Est GFR (CKD-EPI)AfAm 111.05 02/01/20 12:35 Est GFR (CKD-EPI)NonAf 95.81 02/01/20 12:35 Random Glucose 149 mg/dL (74-106) H 02/01/20 12:35 Fasting Glucose 89 mg/dL (74-106) 02/03/20 07:45 Calcium 8.9 mg/dL (8.5-10.1) 02/01/20 12:35 Total Bilirubin 0.4 mg/dL (0.2-1) 02/01/20 12:35 AST 32 U/L (15-37) 02/01/20 12:35 ALT 34 U/L (13-61) 02/01/20 12:35 Alkaline Phosphatase 64 U/L (45-117) 02/01/20 12:35 Total Protein 7.4 g/dl (6.4-8.2) 02/01/20 12:35 Albumin 3.8 g/dl (3.4-5.0) 02/01/20 12:35 Syphilis Serology Non-reactive (NONREACTIVE) 02/01/20 12:35 COVID-19 (SHANIQUE) Not detected (Not Detected) 02/01/20 12:35 Assessment: 02/05/20 12:37 withdrawal symptom Plan: continue detox librium regimen,amoxicillin 500 mgs po tid f or 7days,anbisom 1 application q 6 hrs prn for dental pain,motrin 600 mgs po q 6 hrs prn for pain,discharge in am
[2020-02-05] MEDS ORDERED: BENZOCAINE 20 % GEL TUBE MM PRN (09:57)
[2020-02-05] MEDS ORDERED: AMOXICILLIN 500 MG CAPSULE (FP) PO ONE (10:30)
[2020-02-05] MEDS: PANTOPRAZOLE 40 MG TABLET PO SCH (10:30)
[2020-02-05] MEDS: PRENATAL VITAMINS W/ FOLIC ACID TABLET (FP) PO SCH (10:31)
[2020-02-05] MEDS: IBUPROFEN 600 MG TABLET (FP) PO PRN ×2 (10:33→18:27)
[2020-02-05] MEDS: NICOTINE 7 MG/24 HOURS TOPICAL PATCH TD SCH (10:34)
[2020-02-05] MEDS: amLODIPine BESYLATE 10 MG TABLET (FP) PO SCH (10:56)
[2020-02-05] MEDS: AMOXICILLIN 500 MG CAPSULE (FP) PO SCH ×2 (14:46→22:16)
[2020-02-05] MEDS: THIAMINE HCL 100 MG TABLET (FP) PO SCH (22:17)
[2020-02-05] MEDS: MELATONIN 5 MG TABLETS PO SCH (22:18)
[2020-02-06] MEDS ORDERED: chlordiazePOXIDE HCL 10 MG CAPSULE PO ONE (05:00)
[2020-02-06] MEDS: AMOXICILLIN 500 MG CAPSULE (FP) PO SCH (06:00)
[2020-02-06] MEDS: IBUPROFEN 600 MG TABLET (FP) PO PRN (06:02)
[2020-02-06 07:09] VITALS: BP 117/62; PULSE 54; TEMP 96
--- NOTE | 2020-02-06 08:44 | DS ---
[facility] Detox Discharge Summary Admission Date: 02/01/20 Discharge Date: 02/06/20 - History Present History: Alcohol Dependence, Cocaine Dependence - Physical Exam Results Vital Signs: Vital Signs Temperature 96 F L 02/06/20 07:07 Pulse Rate 54 L 02/06/20 07:07 Respiratory Rate 18 02/06/20 07:07 Blood Pressure 117/62 02/06/20 07:07 O2 Sat by Pulse Oximetry (%) 96 02/06/20 07:07 Pertinent Admission Physical Exam Findings: Vital Signs Temperature 96 F L 02/06/20 07:07 Pulse Rate 54 L 02/06/20 07:07 Respiratory Rate 18 02/06/20 07:07 Blood Pressure 117/62 02/06/20 07:07 O2 Sat by Pulse Oximetry (%) 96 02/06/20 07:07 Laboratory Tests 02/01/20 02/01/20 02/01/20 12:35 12:35 12:35 WBC 5.9 RBC 4.56 Hgb 14.8 Hct 43.9 D MCV 96.4 H MCH 32.4 MCHC 33.6 RDW 14.8 Plt Count 310 MPV 7.7 Sodium Potassium Chloride Carbon Dioxide Anion Gap BUN Creatinine Est GFR (CKD-EPI)AfAm Est GFR (CKD-EPI)NonAf Random Glucose Fasting Glucose Calcium Total Bilirubin AST ALT Alkaline Phosphatase Total Protein Albumin Syphilis Serology Non-reactive COVID-19 (SHANIQUE) Not detected 02/01/20 02/03/20 12:35 07:45 WBC RBC Hgb Hct MCV MCH MCHC RDW Plt Count MPV Sodium 140 Potassium 3.7 Chloride 103 Carbon Dioxide 27 Anion Gap 11 BUN 13.2 Creatinine 0.9 Est GFR (CKD-EPI)AfAm 111.05 Est GFR (CKD-EPI)NonAf 95.81 Random Glucose 149 H Fasting Glucose 89 Calcium 8.9 Total Bilirubin 0.4 AST 32 ALT 34 Alkaline Phosphatase 64 Total Protein 7.4 Albumin 3.8 Syphilis Serology COVID-19 (SHANIQUE) aaox3 ambulating well with wheelchair no acute distress lungs CTA - Treatment Hospital Course: Detox Protocol Followed, Detoxed Safely, Responded well, Discharged Condition Good, Rehab Referral Accepted - Medication Discharge Medications: Ambulatory Orders Amlodipine Besylate 10 mg PO DAILY #30 tablet 02/05/20 Amoxicillin - [Amoxicillin 500mg Capsule -] 500 mg PO TID #20 capsule 02/05/20 Ibuprofen [Motrin -] 600 mg PO Q6H PRN #12 tablet 02/05/20 - Diagnosis (1) Alcohol dependence with uncomplicated withdrawal Current Visit: Yes Status: Chronic (2) Bradycardia Current Visit: No Status: Acute (3) Shoulder pain Current Visit: No Status: Acute Qualifiers: Chronicity: chronic Laterality: bilateral Qualified Code(s): M25.511 - Pain in right shoulder; M25.512 - Pain in left shoulder; G89.29 - Other chronic pain (4) Above knee amputation of left lower extremity Current Visit: No Status: Chronic (5) Cocaine dependence, uncomplicated Current Visit: Yes Status: Chronic (6) Essential (primary) hypertension Current Visit: No Status: Chronic (7) Low back pain Current Visit: No Status: Chronic Qualifiers: Chronicity: chronic Back pain laterality: unspecified Sciatica presence: without sciatica Qualified Code(s): M54.5 - Low back pain; G89.29 - Other chronic pain - AMA Did Patient Leave Against Medical Advice: No
== END 2020-02-06 09:15 | disposition home or self-care (01) | DRG 774 ==
LOC: YASAS 10:51 → Y6N 12:09
PROVIDERS: ADMIT Allergy & Immunology; ATTEND Allergy & Immunology
PROC: HZ2ZZZZ Detoxification Services for Substance Abuse Treatment (ICD-10-PCS; principal; 2020-02-01)
DX: F10.230 Alcohol dependence with withdrawal, uncomplicated (principal); F14.20 Cocaine dependence, uncomplicated; F17.210 Nicotine dependence, cigarettes, uncomplicated; I10 Essential (primary) hypertension; M54.5 Low back pain; M25.511 Pain in right shoulder; M25.512 Pain in left shoulder; G89.29 Other chronic pain; R00.1 Bradycardia, unspecified; R12 Heartburn; Z87.19 Personal history of other diseases of the digestive system; Z89.612 Acquired absence of left leg above knee; Z99.3 Dependence on wheelchair; Z59.0 Homelessness
CPT/HCPCS: 36415; 80053; 82947; 85027; 86780; 93005; 93010; Q0162; U0003